=== PATIENT | female | born 1970 | race African-American/Black ===

== ENCOUNTER 2016-10-21 09:50 | Emergency (ER) | payer OTHER ==
[~2016-10-21] VITALS: Ht 167.6 cm; Wt 81.6 kg
--- NOTE | ~2016-10-21 | US85 ---
[facility] A Service of [facility] RADIOLOGY TEXT RESULTS PATIENT: MISSY DAY LOCATION: [facility] : 72 UNIT #: [id number] AGE: [address]: Mert Eddy MD SEX: F ORDER DR: [id number] [facility] [address] [place], [place] [address] [id number] MR#: [id number] Acc #: [id number] NAME: MISSY DAY : 1970 SEX: F STUDY DATE/TIME: 10/21/2016 12:22 UNIT: [facility] ROOM: STUDY DESCRIPTION: [facility] [employer] Attending Physician: Mert Eddy M.D. Ordering Physician: Mert Eddy M.D. Primary Care Physician: Umang Webber M.D. MEDICAL IMAGING REPORT This report is preliminary unless electronic signature is present EXAM Left lower extremity venous ultrasound. HISTORY Left lower extremity pain and swelling three months intermittent hip and foot. TECHNIQUE Venous ultrasound examination of the left lower extremity was performed using grayscale, spectral Doppler and color flow Doppler imaging. FINDINGS The examination is negative. There is no evidence of left lower extremity deep venous thrombus from the groin to the lower calf. Visualized greater saphenous vein is also patent. IMPRESSION Negative examination. No evidence of left lower extremity deep venous thrombosis. ADDENDUM In the left popliteal fossa, there is a fluid collection measuring 1.67 cm x 0.92 cm x 5.80 cm. Location and appearance most consistent with synovial/Saucedo cyst. Dictated by... Jason Cerrato M.D. THIS IS AN ELECTRONICALLY VERIFIED REPORT Jason Cerrato M.D. at 10/22/2016 10:45 PM [facility] A Service of [facility] RADIOLOGY TEXT RESULTS PATIENT: MISSY DAY LOCATION: [facility] : 72 UNIT #: [id number] AGE: [address]: Mert Eddy MD SEX: F ORDER DR: Lj TD: 10/21/2016 18:58 JOB #: [id number] MEDICAL IMAGING REPORT Page 1 of 1 COPY
[~2016-10-21 09:50] MED LIST: FLEXERIL PO; KETOPROFEN PO; NAPROSYN500 MG PO; ORUDIS75 M1 DOB; PREDNISONE10 MG PO; PREDNISONE10 MG/DOSE PO; VICODIN 5/1 TAB 5/50 PO; ZITHROMAX PO; ZITHROMAX1 G/PKT PO
== END 2016-10-21 13:20 | disposition home or self-care (01) ==
LOC: CED 09:50
DX: I83.812 Varicose veins of left lower extremity with pain (principal); I83.91 Asymptomatic varicose veins of right lower extremity; I10 Essential (primary) hypertension
CPT/HCPCS: 93971; 99284